=== PATIENT | male | born 1960 | race African-American/Black ===

== ENCOUNTER 2017-12-13 09:13 | Emergency (ER) | payer SELFPAY ==
[2017-12-13 09:18] VITALS: TEMP 98.6; BMI 21.1
--- NOTE | 2017-12-13 09:31 | PDOC ---
History of Present Illness - General History Source: Patient Exam Limitations: No Limitations - History of Present Illness Initial Comments: 12/13/17 10:13 The patient is a 57 year old male, with a significant past medical history of hyperthyroidism and hypertension, who presents to the emergency department with , one week of left lower quadrant pain and diarrhea. The patient reports a simultaneous pain to his throat and head. Secondary to his symptoms, he reports a 30 lb weight loss in two months, chills, and a decreased PO intake. He reports he has difficulty sleeping at night due to his symptoms. He denies any headache or dizziness. He denies any recent nausea, vomit, or constipation. He denies any recent chest pain or shortness of breath. He denies any recent dysuria or hematuria. Allergies: NKA Past surgical history: None reported. <Viri Huggins - Last Filed: 12/13/17 10:13> <Isa Almeida - Last Filed: 12/13/17 14:37> - General Chief Complaint: Pain Stated Complaint: ABD PAIN Time Seen by Provider: 12/13/17 09:28 Past History <Viri Huggins - Last Filed: 12/13/17 10:13> - Past Medical History COPD: No HTN: Yes Thyroid Disease: Yes - Suicide/Smoking/Psychosocial Hx Smoking History: Never smoked Information on smoking cessation initiated: No Hx Alcohol Use: No Drug/Substance Use Hx: No Substance Use Type: None <Isa Almeida - Last Filed: 12/13/17 14:37> - Past Medical History Allergies/Adverse Reactions: Allergies Allergy/AdvReac Type Severity Reaction Status Date / Time No Known Allergies Allergy Verified 12/13/17 09:14 Home Medications: Ambulatory Orders Amlodipine Besylate [Norvasc -] 20 mg PO DAILY 12/13/17 Methimazole [Tapazole -] 5 mg PO DAILY 12/13/17 levoFLOXacin [Levaquin -] 500 mg PO DAILY #14 tablet 12/13/17 metroNIDAZOLE [Flagyl -] 500 mg PO TID #42 tablet 12/13/17 Review of Systems - Review of Systems Able to Perform ROS?: Yes Comments:: 12/13/17 10:14 GENERAL/CONSTITUTIONAL: +Chills. +Decreased appetite. No fever. No weakness. HEAD, EYES, EARS, NOSE AND THROAT: No change in vision. No ear pain or discharge. No sore throat. CARDIOVASCULAR: No chest pain or shortness of breath. RESPIRATORY: No cough, wheezing, or hemoptysis. GASTROINTESTINAL: +Lower left quadrant abdominal pain. +Diarrhea. GENITOURINARY: No dysuria, frequency, or change in urination. MUSCULOSKELETAL: No joint or muscle swelling or pain. No neck or back pain. SKIN: No rash NEUROLOGIC: No headache, vertigo, loss of consciousness, or change in strength/ sensation. ENDOCRINE: +30 lb weight loss in two months. No increased thirst. HEMATOLOGIC/LYMPHATIC: No anemia, easy bleeding, or history of blood clots. ALLERGIC/IMMUNOLOGIC: No hives or skin allergy. All Other Systems: Reviewed and Negative <Viri Huggins - Last Filed: 12/13/17 10:13> *Physical Exam - Vital Signs Last Vital Signs Temp Pulse Resp BP Pulse Ox 98.6 F 80 18 127/81 100 12/13/17 09:14 12/13/17 09:14 12/13/17 09:14 12/13/17 09:14 12/13/17 09:14 <Viri Huggins - Last Filed: 12/13/17 10:13> - Vital Signs Last Vital Signs Temp Pulse Resp BP Pulse Ox 98.6 F 80 18 127/81 100 12/13/17 09:14 12/13/17 09:14 12/13/17 09:14 12/13/17 09:14 12/13/17 09:14 - Physical Exam Comments: GENERAL: Awake, alert, and fully oriented, in no acute distress. Appears thin. HEAD: No signs of trauma EYES: PERRLA, EOMI, sclera anicteric, conjunctiva clear ENT: Auricles normal inspection, hearing grossly normal, nares patent, oropharynx clear without exudates. Moist mucosa NECK: Normal ROM, supple, no lymphadenopathy, JVD, or masses LUNGS: Breath sounds equal, clear to auscultation bilaterally. No wheezes, and no crackles HEART: Regular rate and rhythm, normal S1 and S2, no murmurs, rubs or gallops ABDOMEN: Soft, +LLQ and suprapubic tenderness, normoactive bowel sounds. No guarding, no rebound. No masses EXTREMITIES: Normal range of motion, no edema. No clubbing or cyanosis. No cords, erythema, or tenderness NEUROLOGICAL: Cranial nerves II through XII grossly intact. Normal speech, normal gait SKIN: Warm, Dry, normal turgor, no rashes or lesions noted. <Isa Almeida - Last Filed: 12/13/17 14:37> ED Treatment Course - LABORATORY CBC & Chemistry Diagram: 12/13/17 10:15 12/13/17 10:15 <Isa Almeida - Last Filed: 12/13/17 14:37> Medical Decision Making - Medical Decision Making 12/13/17 09:58 Pt with significant weight loss over the past few weeks, noted to have LLQ tenderness. DDx includes diverticulitis, colitis, hyperthyroid, but also may include HIV, malignancy. Will send labs, plan for CT a/p. 12/13/17 13:28 Discussed lab results with patient. Awaiting CT read. 12/13/17 14:26 Results d/w patient. I explained that it is unclear if this is definitely colitis vs mass. We will treat with abx, I encouraged him to f/u with GI as an outpatient, as he may require further workup to r/o mass. <Isa Almeida - Last Filed: 12/13/17 14:37> *DC/Admit/Observation/Transfer - Attestations Scribe Attestion: 12/13/17 10:14 Documentation prepared by Viri Huggins, acting as medical billing clerk for Isa Almeida MD. <Viri Huggins - Last Filed: 12/13/17 10:13> - Discharge Dispostion Admit: No <Isa Almeida - Last Filed: 12/13/17 14:37> Diagnosis at time of Disposition: Diarrhea Qualifiers: Diarrhea type: unspecified type Qualified Code(s): R19.7 - Diarrhea, unspecified - Discharge Dispostion Disposition: HOME Condition at time of disposition: Stable - Prescriptions Prescriptions: levoFLOXacin [Levaquin -] 500 mg PO DAILY #14 tablet metroNIDAZOLE [Flagyl -] 500 mg PO TID #42 tablet - Referrals Referrals: Se Pedroza MD [Staff Physician] - - Patient Instructions Printed Discharge Instructions: DI for Colitis Additional Instructions: YOUR CT SCAN SHOWS AN AREA OF THICKENING THAT IS LIKELY AN INFECTION. PLEASE TAKE ANTIBIOTICS PRESCRIBED. HOWEVER, IT IS VERY IMPORTANT THAT YOU FOLLOW UP WITH A STOMACH SPECIALIST IN THE NEXT 1-2 WEEKS. - Post Discharge Activity
[2017-12-13] MEDS ORDERED: SODIUM CHLORIDE 1,000 ML IV STA ×3 (09:52→13:17)
[2017-12-13] MEDS ORDERED: ACETAMINOPHEN INJECTION 100 ML IVPB ONE (10:08)
[2017-12-13] MEDS ORDERED: ACETAMINOPHEN 1000 MG/100 ML VIAL (NON FORMULARY) IVPB ONE (10:27)
[2017-12-13 10:36] LABS: BASO % 0.3 % (0-2.0); EOS % 1.5 % (0-4.5); HEMATOCRIT 39.7 % (35.4-49); HEMOGLOBIN 13.3 GM/dL (11.7-16.9); LYMPH % 30.5 % (8-40); MCH 29.2 pg (25.7-33.7); MCHC 33.4 g/dl (32.0-35.9); MEAN CELL VOLUME 87.5 fl (80-96); MEAN PLT VOLUME 8.5 fl (7.5-11.1); MONO % 12.2 % (3.8-10.2); NEUT % 55.5 % (42.8-82.8); PLATELET COUNT 234 K/MM3 (134-434); RBC 4.54 M/mm3 (4.00-5.60); RDW 15.2 % (11.9-15.9); WHITE BLOOD COUNT 5.1 K/mm3 (4.0-10.0)
[2017-12-13 10:45] LABS: URINE APPEARANCE SLCLOUDY; URINE BILIRUBIN NEGATIVE (NEGATIVE); URINE BLOOD NEGATIVE (NEGATIVE); URINE COLOR YELLOW; URINE GLUCOSE (UA) NEGATIVE (NEGATIVE); URINE KETONE NEGATIVE (NEGATIVE); URINE LEUK ESTERASE TRACE (NEGATIVE); URINE NITRITE NEGATIVE (NEGATIVE); URINE PROTEIN NEGATIVE (NEGATIVE); URINE UROBILINOGEN NEGATIVE mg/dL (0.2-1.0)
[2017-12-13 11:01] LABS: ALBUMIN 3.2 g/dl (3.4-5.0); ANION GAP 6 (8-16); BILIRUBIN,TOTAL 0.2 mg/dL (0.2-1.0); BLOOD UREA NITROGEN 15 mg/dL (7-18); CALCIUM 9.6 mg/dL (8.5-10.1); CHLORIDE 105 mmol/L (98-107); CO2 26 mmol/L (21-32); CREATININE 1.4 mg/dL (0.7-1.3); GLUCOSE,RANDOM 82 mg/dL (74-106); LIPASE 97 U/L (73-393); POTASSIUM 4.3 mmol/L (3.5-5.1); SGOT/AST 10 U/L (15-37); SGPT/ALT 15 U/L (12-78); SODIUM 137 mmol/L (136-145); TOT PROT 9.5 g/dl (6.4-8.2)
[2017-12-13 11:04] LABS: EPI CELLS RARE /HPF (FEW)
[2017-12-13 11:05] LABS: GRANULAR CASTS 25 /lpf; URINE BACTERIA RARE /hpf (NONE SEEN); URINE CASTS 2 /hpf; URINE MUCUS RARE
[2017-12-13 11:09] LABS: ALK PHOS 78 U/L (45-117)
[2017-12-13 14:06] VITALS: BP 133/85; PULSE 65
[2017-12-13] MEDS ORDERED: metroNIDAZOLE 250 MG TABLET PO ONE (14:20)
[2017-12-13] MEDS ORDERED: metroNIDAZOLE 250 MG TABLET ONE (14:26)
== END 2017-12-13 14:30 | disposition home or self-care (01) ==
LOC: JER 09:13
PROC: 3E033GC Introduction of Other Therapeutic Substance into Peripheral Vein, Percutaneous Approach (ICD-10-PCS; principal; 2017-12-13)
PROC: 3E0337Z Introduction of Electrolytic and Water Balance Substance into Peripheral Vein, Percutaneous Approach (ICD-10-PCS; 2017-12-13)
DX: R19.7 Diarrhea, unspecified (principal)
CPT/HCPCS: 36415; 74177-TC; 80053; 81003; 81015; 83690; 84439; 84443; 85025; 87086; 87389; 99283-25

== ENCOUNTER 2018-03-09 10:22 | Emergency (ER) | payer OTHER ==
[2018-03-09 10:37] VITALS: BP 126/83; PULSE 67; TEMP 98.7; BMI 20.8
--- NOTE | 2018-03-09 11:26 | PDOC ---
History of Present Illness <Mary Montes - Last Filed: 03/09/18 14:55> - General History Source: Patient Exam Limitations: No Limitations - History of Present Illness Initial Comments: 03/09/18 11:50 The patient is a 57 year old male, with a significant PMH of hypertension, hyperthyroidism, who presents to the emergency department with 4 days of intermittent left lower quadrant abdominal pain and diarrhea (non bloody). The patient states the intermittent left lower quadrant abdominal pain last for a couple of seconds at a time before resolving on its own and is brought on when he drinks cold beverages. The patient also states he has had a decreased appetite and reports recent weight loss. He denies any trouble swallowing. The patient states he has been having 3 or more bowel movements a day described as loose stool diarrhea (non bloody). The patient states he was evaluated here at [facility] in December, for a similar complaint of left lower quadrant abdominal pain and has a GI follow up scheduled for March,. The patient denies chest pain, shortness of breath, headache and dizziness. Denies fever, chills, nausea, vomit, and constipation. Denies dysuria, frequency, urgency and hematuria. Allergies: NKA <Kana Kelley - Last Filed: 03/09/18 15:03> - General Chief Complaint: Pain Stated Complaint: REVISIT/ ABD PAIN Time Seen by Provider: 03/09/18 11:26 Past History - Past Medical History COPD: No GI Disorders: Yes (colitis,stomach mass) HTN: Yes Thyroid Disease: Yes - Suicide/Smoking/Psychosocial Hx Smoking History: Never smoked Information on smoking cessation initiated: No Hx Alcohol Use: No Drug/Substance Use Hx: No Substance Use Type: Marijuana <Mary Montes - Last Filed: 03/09/18 14:55> <Kana Kelley - Last Filed: 03/09/18 15:03> - Past Medical History Allergies/Adverse Reactions: Allergies Allergy/AdvReac Type Severity Reaction Status Date / Time No Known Allergies Allergy Verified 03/09/18 10:33 Home Medications: Ambulatory Orders Amlodipine Besylate [Norvasc -] 20 mg PO DAILY 12/13/17 Methimazole [Tapazole -] 5 mg PO DAILY 12/13/17 Review of Systems - Review of Systems Comments:: 03/09/18 11:51 GENERAL/CONSTITUTIONAL: (+) Decreased appetite. No fever or chills. No weakness. HEAD, EYES, EARS, NOSE AND THROAT: No change in vision. No ear pain or discharge. No sore throat. CARDIOVASCULAR: No chest pain or shortness of breath. RESPIRATORY: No cough, wheezing, or hemoptysis. GASTROINTESTINAL: (+) Left lower quadrant abdominal pain. (+) Diarrhea. No nausea, vomiting or constipation. GENITOURINARY: No dysuria, frequency, or change in urination. MUSCULOSKELETAL: No joint or muscle swelling or pain. No neck or back pain. SKIN: No rash NEUROLOGIC: No headache, vertigo, loss of consciousness, or change in strength/ sensation. ENDOCRINE: No increased thirst. No abnormal weight change. HEMATOLOGIC/LYMPHATIC: No anemia, easy bleeding, or history of blood clots. ALLERGIC/IMMUNOLOGIC: No hives or skin allergy. <Kana Kelley - Last Filed: 03/09/18 15:03> *Physical Exam - Vital Signs Last Vital Signs Temp Pulse Resp BP Pulse Ox 98.7 F 67 18 126/83 100 03/09/18 10:34 03/09/18 10:34 03/09/18 10:34 03/09/18 10:34 03/09/18 10:34 <Mary Montes - Last Filed: 03/09/18 14:55> - Vital Signs Last Vital Signs Temp Pulse Resp BP Pulse Ox 98.7 F 67 18 126/83 100 03/09/18 10:34 03/09/18 10:34 03/09/18 10:34 03/09/18 10:34 03/09/18 10:34 - Physical Exam Comments: 03/09/18 11:52 GENERAL: Awake, alert, and fully oriented, in no acute distress HEAD: No signs of trauma EYES: PERRLA, EOMI, sclera anicteric, conjunctiva clear ENT: Auricles normal inspection, hearing grossly normal, nares patent, oropharynx clear without exudates. Moist mucosa NECK: Normal ROM, supple, no lymphadenopathy, JVD, or masses LUNGS: Breath sounds equal, clear to auscultation bilaterally. No wheezes, and no crackles HEART: Regular rate and rhythm, normal S1 and S2, no murmurs, rubs or gallops ABDOMEN: (+) Mild diffuse tenderness to deep palpation. Soft, normoactive bowel sounds. No guarding, no rebound. No masses EXTREMITIES: Normal range of motion, no edema. No clubbing or cyanosis. No cords, erythema, or tenderness NEUROLOGICAL: Cranial nerves II through XII grossly intact. Normal speech, normal gait SKIN: Warm, Dry, normal turgor, no rashes or lesions noted. <Charo Kelleyian - Last Filed: 03/09/18 15:03> ED Treatment Course - LABORATORY CBC & Chemistry Diagram: 03/09/18 11:34 03/09/18 11:34 <JyotiMary de leon - Last Filed: 03/09/18 14:55> - LABORATORY CBC & Chemistry Diagram: 03/09/18 11:34 03/09/18 11:34 - RADIOLOGY Radiograph Interpretation: 03/09/18 15:02 EXAM#: TYPE/EXAM: RESULT: [id number] CT/ABDOMEN PELVIS CT WITH CONTR INDICATION: Right-sided abdominal pain. TECHNIQUE: CT scan of the abdomen and pelvis following oral administration of Gastrografin contrast and intravenous administration of 100 mL of Omnipaque 350 contrast in the portal venous phase. COMPARISON: 12/13/2017 CT abdomen/pelvis. FINDINGS: The heart is normal size. The visualized lung bases are unremarkable. Normal liver size and contour. Punctate hypodense lesions in the right hepatic lobe are too small to characterize and unchanged in size. The gallbladder is contracted. There is no biliary ductal dilatation. The pancreas is unremarkable. The spleen is normal size, with no focal lesions. There is no adrenal gland mass or nodule. The kidneys are normal size with symmetric cortical enhancement. There is no hydroureteronephrosis. A subcentimeter cortical hypodense lesion in the upper pole of left kidney is too small to characterize, unchanged in size and statistically likely to represent a cyst. The abdominal aorta is normal caliber. No pathologically enlarged lymph nodes by CT size criteria identified within the abdomen or pelvis. The large and small bowel is normal caliber with no evidence of obstruction. A normal-appearing appendix is visualized. There is wall thickening versus underdistention of the rectum, sigmoid and descending colon. There is no intraperitoneal free air, free fluid or drainable collection. Despite underdistention, the urinary bladder wall appears to be circumferentially thickened. The prostate gland is not enlarged. No acute fracture in the visualized bones. There is a well demarcated lesion in the right iliac bone with sclerotic margins and nonaggressive imaging features, unchanged in size. Sclerotic lesion in the left femoral neck is unchanged and presumably an enostosis. There is unchanged sclerotic change in the lower sacrum along bilateral sacroiliac joints. There is mild levoconvex curvature of the lumbar spine and spondylosis with degenerative grade 1 retrolisthesis of L4 and L5. There is chronic bilateral L5 spondylolysis with grade 1 anterolisthesis of L5 on S1, unchanged. IMPRESSION: 1. Normal-appearing appendix. No evidence of bowel obstruction. 2. Prominent wall in the rectum, sigmoid and descending colon is probably due to underdistention, although a mild colitis cannot be entirely excluded. Please correlate clinically. 3. Circumferential thickening of the urinary bladder wall despite underdistention is suspicious for cystitis. Please correlate with urinalysis. Reported By: Dylan Pretty DO <Kana Kelley - Last Filed: 03/09/18 15:03> Medical Decision Making - Medical Decision Making 03/09/18 14:55 Pt presents to the ED complaining of Diffuse R sided abdominal pain. CT equivocial for appendicitis on last visit. Ct with IV and PO contrast performed today is negative for appendicitis. Will discharge home. Patient already has follow up with gastroenterology. Will instruct him to return for worsening symptoms. <Mary Montes - Last Filed: 03/09/18 14:55> *DC/Admit/Observation/Transfer - Discharge Dispostion Decision to Admit order: No <Mary Montes - Last Filed: 03/09/18 14:55> - Attestations Scribe Attestion: 03/09/18 11:53 Documentation prepared by Kana Kelley, acting as clinical specialist medical device for Mary Montes MD. <Kana Kelley - Last Filed: 03/09/18 15:03> Diagnosis at time of Disposition: Abdominal pain Qualifiers: Abdominal location: generalized Qualified Code(s): R10.84 - Generalized abdominal pain - Discharge Dispostion Disposition: HOME - Patient Instructions Printed Discharge Instructions: DI for Abdominal Pain-Adult Additional Instructions: Return to the ED for severe pain, pain with nausea and vomiting, other new or worsening symptoms. Make sure that you follow up with the filler picker and with your Primary care doctor within one week.
[2018-03-09 11:57] LABS: BASO % 0.7 % (0-2.0); EOS % 1.2 % (0-4.5); HEMATOCRIT 35.2 % (35.4-49); HEMOGLOBIN 11.8 GM/dL (11.7-16.9); LYMPH % 29.7 % (8-40); MCH 29.4 pg (25.7-33.7); MCHC 33.6 g/dl (32.0-35.9); MEAN CELL VOLUME 87.5 fl (80-96); MEAN PLT VOLUME 8.3 fl (7.5-11.1); MONO % 8.3 % (3.8-10.2); NEUT % 60.1 % (42.8-82.8); PLATELET COUNT 235 K/MM3 (134-434); RBC 4.02 M/mm3 (4.00-5.60); RDW 14.8 % (11.9-15.9); WHITE BLOOD COUNT 9.6 K/mm3 (4.0-10.0)
[2018-03-09 12:26] LABS: ALBUMIN 3.2 g/dl (3.4-5.0); ALK PHOS 60 U/L (45-117); ANION GAP 4 (8-16); BILIRUBIN,TOTAL 0.2 mg/dL (0.2-1.0); BLOOD UREA NITROGEN 17 mg/dL (7-18); CALCIUM 9.8 mg/dL (8.5-10.1); CHLORIDE 104 mmol/L (98-107); CO2 28 mmol/L (21-32); CREATININE 1.3 mg/dL (0.7-1.3); GLUCOSE,RANDOM 86 mg/dL (74-106); SGPT/ALT 38 U/L (12-78); SODIUM 136 mmol/L (136-145)
[2018-03-09 12:38] LABS: POTASSIUM 4.3 mmol/L (3.5-5.1); SGOT/AST 24 U/L (15-37)
== END 2018-03-09 15:10 | disposition home or self-care (01) ==
LOC: JER 10:22
DX: R10.84 Generalized abdominal pain (principal); I10 Essential (primary) hypertension; E03.9 Hypothyroidism, unspecified
CPT/HCPCS: 36415; 74177-TC; 80053; 84443; 85025; 99282-25